=== PATIENT | female | born 1960 | race Caucasian/White ===

== ENCOUNTER 2018-07-20 06:32 | Day surgery (SDC) | END 2018-07-20 17:21 | disposition home or self-care (01) ==

== ENCOUNTER 2019-03-10 03:53 | Inpatient (IN) | payer OTHER ==
[2019-03-10] VITALS (14 sets, daily range): BP systolic 128–162; BP diastolic 80–90; PULSE 52–79; RESP 16–18
[~2019-03-10 03:53] MED LIST: ASPI-817 PO; LISINOPRIL PO
[2019-03-10] MEDS ORDERED: ACETAMINOPHEN 325 MG TAB PO PRN (06:30)
[2019-03-10] MEDS ORDERED: ONDANSETRON 4 MG INJ IV PRN (06:30)
[2019-03-10] MEDS ORDERED: LISINOPRIL 20 MG TAB PO SCH (09:00)
[2019-03-10] MEDS: ASPIRIN 81 MG TAB PO SCH (09:27)
--- NOTE | 2019-03-10 09:50 | CONS ---
Assessment/Plan Assessment/Plan Hospital Course 59 F c HTN, who presents for evaluation of R iveth-visual changes...in the context of reported elevated BP. There is also a report of possible LOC... The clinical picture is most ominously concerning for stroke.. Hypertensive urgency is additionally considered, though a Dx of exclusion.. OSH Head CT was reportedly unremarkable.. P: MRI brain for further characterization asa/lipitor daily, pending the above add UDS Other management and supportive care per primary Will follow clinically Consultation Date/Type/Reason Admit Date/Time March 10, 2019 at 05:38 Type of Consult Neurology Reason for Consultation vision abnl Requesting Provider: ELISHA DAVALOS MD Date/Time of Note DATE: 03/10/19 TIME: 09:43 Hx of Present Illness 59 F c/ Hx of HTN, who presents for evaluation of severe HTN and visual Sx.. She notes strenuously cleaning home 2 days ago..which left her dizzy and tired. Then yesterday, she noticed that her BP was progressively elevated... She also noted black dots in R iveth-vision...which have since transformed into squiggly lines.. She has never had similar visual Sx previously.. She denies headache, chest pain, weakness, numbness, or other additional Sx.. 12 pt ROS ow neg Exam/Review of Systems Exam Vitals Vital Signs Date Temp Pulse Resp B/P (MAP) Pulse Ox O2 O2 Flow FiO2 Time Delivery Rate 03/10/19 98.7 79 18 128/84 96 Room Air 09:34 (99) Exam PE: Gen Appearance: No Apparent Distress HEENT: Normocephalic Cardiovascular: Regular rate Lungs: Clear bilaterally Abdomen: Soft Extremities: Dry NE: The patient was alert and oriented. Language was normal. Fund of knowledge was normal. Pupils were equal and reactive to light. There was no afferent pupillary defect. Visual oneil were normal. Funduscopic examination was limited. Extra-ocular movements were full. Ptosis was absent. There was no nystagmus. Facial sensation was normal. Face was symmetric with normal strength. Hearing was intact. Palate movements were normal. Neck strength was normal. There was normal tongue bulk and speed of movement. Tone was normal. Muscle bulk was normal. I did not see fasciculations. Arms and legs were strong. Vibration sensation was normal. Temperature and pinprick sensation was normal. Rapid alternating movements were normal. There was no dysmetria. There was no intention tremor. Gait was deferred due to bedrest. Arm and leg reflexes were 2+ and symmetric. Vargas's sign was absent. Plantar responses were flexor. Results Result Diagram: 03/10/19 0716 Results 24hrs Laboratory Tests Test 03/10/19 07:16 White Blood Count 10.0 Red Blood Count 4.96 Hemoglobin 14.6 Hematocrit 43.9 Mean Corpuscular Volume 88.5 Mean Corpuscular Hemoglobin 29.4 Mean Corpuscular Hemoglobin Concent 33.3 Red Cell Distribution Width 13.2 Platelet Count 301 Mean Platelet Volume 10.3 Immature Granulocytes % 0.500 H Neutrophils % 49.8 Lymphocytes % 36.6 Monocytes % 9.7 Eosinophils % 2.6 Basophils % 0.8 Nucleated Red Blood Cells % 0.0 Immature Granulocytes # 0.050 H Neutrophils # 5.0 Lymphocytes # 3.7 H Monocytes # 1.0 H Eosinophils # 0.3 Basophils # 0.1 Nucleated Red Blood Cells # 0.0 B-Type Natriuretic Peptide 155 H Triglycerides Level 254 H Cholesterol Level 232 H LDL Cholesterol, Calculated 142 HDL Cholesterol 39 Cholesterol/HDL Ratio 5.9 Medications Medication Current Medications Aspirin (Aspirin) 81 mg DAILY PO Last administered on 03/10/19at 09:27; Admin Dose 81 MG; Start 03/10/19 at 09:00 Lisinopril (Zestril) 20 mg DAILY PO Last administered on 03/10/19at 09:28; Admin Dose 20 MG; Start 03/10/19 at 09:00 Acetaminophen (Tylenol Tab) 650 mg Q6H PRN PO MILD PAIN(1-3)OR ELEVATED TEMP; Start 03/10/19 at 06:30 Ondansetron HCl (Zofran Inj) 4 mg Q6H PRN IV NAUSEA AND/OR VOMITING; Start 03/10/19 at 06:30 Past Medical History reviewed Home Meds Reported Medications Aspirin* (Aspirin* EC) 81 Mg Tablet.dr, 81 MG PO DAILY, TAB 07/20/18 [Lisinopril] No Conflict Check, PO 07/20/18 Medications Current Medications Aspirin (Aspirin) 81 mg DAILY PO Last administered on 03/10/19at 09:27; Admin Dose 81 MG; Start 03/10/19 at 09:00 Lisinopril (Zestril) 20 mg DAILY PO Last administered on 03/10/19at 09:28; Admin Dose 20 MG; Start 03/10/19 at 09:00 Acetaminophen (Tylenol Tab) 650 mg Q6H PRN PO MILD PAIN(1-3)OR ELEVATED TEMP; Start 03/10/19 at 06:30 Ondansetron HCl (Zofran Inj) 4 mg Q6H PRN IV NAUSEA AND/OR VOMITING; Start 03/10/19 at 06:30 Allergies: Coded Allergies: No Known Allergy (Unverified , 07/20/18) Past Surgical History reviewed Family History Significant Family History: hypertension Social History Alcohol Use: none Smoking Status: Never smoker Drug Use: none RAZA CRAIG March 10, 2019 09:50
--- NOTE | 2019-03-10 13:41 | HP ---
Date/Time of Note Date/Time of Note DATE: 03/10/19 TIME: 13:41 Assessment/Plan VTE Prophylaxis Risk score (from [facility]0 risk: 3 SCD applied (from [facility]): No SCD contraindicated: low risk/ambulating Pharmacological prophylaxis: NA/contraindicated Pharm contraindication: low risk/ambulating Lines/Catheters IV Catheter Type (from [facility] Saline Lock Urinary Cath still in place: No Assessment/Plan Hospital Course 1. History of altered level of consciousness 2. History of bradycardia 3. Hypertension emergency 4. Dizziness 5. Dyslipidemia 6. Overweight Assessment/Plan -telemetry service -start Simvastatin 20 mg po daily -GI proph. Protonix -DVT proph. ambulation -ambulate -add HCTZ -Dr. Lofton for cardiology consult aware -Normalization of her blood pressure Result Diagram: 03/10/19 0716 Results 24hrs Laboratory Tests Test 03/10/19 07:16 White Blood Count 10.0 Red Blood Count 4.96 Hemoglobin 14.6 Hematocrit 43.9 Mean Corpuscular Volume 88.5 Mean Corpuscular Hemoglobin 29.4 Mean Corpuscular Hemoglobin Concent 33.3 Red Cell Distribution Width 13.2 Platelet Count 301 Mean Platelet Volume 10.3 Immature Granulocytes % 0.500 H Neutrophils % 49.8 Lymphocytes % 36.6 Monocytes % 9.7 Eosinophils % 2.6 Basophils % 0.8 Nucleated Red Blood Cells % 0.0 Immature Granulocytes # 0.050 H Neutrophils # 5.0 Lymphocytes # 3.7 H Monocytes # 1.0 H Eosinophils # 0.3 Basophils # 0.1 Nucleated Red Blood Cells # 0.0 B-Type Natriuretic Peptide 155 H Triglycerides Level 254 H Cholesterol Level 232 H LDL Cholesterol, Calculated 142 HDL Cholesterol 39 Cholesterol/HDL Ratio 5.9 HPI/ROS Admit Date/Time Admit Date/Time March 10, 2019 at 05:38 Hx of Present Illness This 59 years old Ghanaian female with a history of hypertension was seen in [facility] emergency room with blurry vision, dizziness, altered LOC per daughter and a hypertensive emergency , therefore stroke was suspected. Code stroke was called. Patient underwent CT scan of the head with contrast , that is unremarkable, ultrasound of both carotid arteries that are negative for stenosis, occlusion or any other abnormalities. CT angiogram neck with contrast was performed as well negative. CMP showed glucose 105 creatinine 1.03 GFR 56 troponin is normal, PTT is normal, INR normal in the emergency room. She was given 1 L of normal saline bolus. EKG showed normal sinus rhythm, patient was transferred to [facility] in the hospital today per insurance purposes Pr reported that she normally takes Lisinopril 20 daily but recently she changed her medication to other Setswana medication, TERENCE inhibitor, she report 3 days ago skipping beats ROS Constitutional: no complaints Cardiovascular: chest pain, edema; No no complaints, No lightheadedness, No orthopenea, No palpitations, No paroxysmal nocturnal dyspnea, No other PMH/Family/Social Past Medical History Medical History: hypertension Medications Current Medications Aspirin (Aspirin) 81 mg DAILY PO Last administered on 03/10/19at 09:27; Admin Dose 81 MG; Start 03/10/19 at 09:00 Lisinopril (Zestril) 20 mg DAILY PO Last administered on 03/10/19at 09:28; Admin Dose 20 MG; Start 03/10/19 at 09:00 Acetaminophen (Tylenol Tab) 650 mg Q6H PRN PO MILD PAIN(1-3)OR ELEVATED TEMP; Start 03/10/19 at 06:30 Ondansetron HCl (Zofran Inj) 4 mg Q6H PRN IV NAUSEA AND/OR VOMITING; Start 03/10/19 at 06:30 Coded Allergies: No Known Allergy (Unverified , 07/20/18) Past Surgical History Past Surgical Hx: no surgical history Family History Significant Family History: hypertension Social History Alcohol Use: none Smoking Status: Never smoker Drug Use: none Exam/Review of Systems Vital Signs Vitals Vital Signs Date Temp Pulse Resp B/P (MAP) Pulse Ox O2 O2 Flow FiO2 Time Delivery Rate 03/10/19 98.1 52 16 159/90 98 Room Air 12:20 (113) Exam Constitutional: alert, oriented Respiratory: clear to auscultation Cardiovascular: regular rate and rhythm Genitourinary - Female: CVA tenderness; No nl adnexae, No nl external genitalia, No CMT, No uterus, No other PENNY SCHWARTZ March 10, 2019 13:41
[2019-03-10] MEDS ORDERED: hydrALAzine 20 MG INJ IV PRN (17:00)
[2019-03-10] MEDS: HYDROCHLOROTHIAZIDE 25 MG TAB PO SCH (17:41)
--- NOTE | 2019-03-10 18:46 | RADRPT ---
Echocardiogram Report Patient Name: MAC HARRISONPatient ID: [id number] : 1960 (59y 1m)Study Date: 03/10/2019 8:08:13 AM Gender: FAccession #: [id number] Tech: Timothy Villafana [facility] Location: [facility] Ref.Physician: ELISHA DAVALOS Height(Cm): BSA: Weight(Kg): Quality: AdequateAccount #: Procedures: Echocardiographic Report: Transthoracic echocardiogram with complete 2D, M-Mode, and doppler examination. Indications: Rule out stroke. Measurements: 2D/M Mode Doppler Measurement Value Normal Range Measurement Value Normal Range LVIDd 2D 3.9 [ 3.8 - 5.2 ] cm AV Peak Roderick 1.2 [ 100.0 - 170.0 ] cm/sec LVIDs 2D 2.6 [ 2.2 - 3.5 ] cm AV Peak PG 6.0 [ 2.0 - 9.0 ] mmHg LVPWd 2D 1.0 [ 0.6 - 0.9 ] cm LVOT Peak Roderick 1.1 [ 70.0 - 110.0 ] cm/sec IVSd 2D 1.5 [ 0.6 - 0.9 ] cm LVOT Peak PG 5.0 [ 2.0 - 6.0 ] mmHg AoR Diam 2D 2.7 [ 2.3 - 3.1 ] cm MV E Peak Roderick 0.7 [ 60.0 - 130.0 ] cm/sec EDV 2D 66.3 [ 46.0 - 106.0 ] ml MV A Peak Roderick 0.9 [ 100.0 - 120.0 ] cm/sec ESV 2D 25.3 [ 14.0 - 42.0 ] ml MV E/A 0.8 [ 0.8 - 1.5 ] ratio EF 2D 61.8 [ 54.0 - 74.0 ] percent MV Decel Time 268 [ 104 - 258 ] msec LA Dimen 2D 2.6 [ 2.7 - 3.8 ] cm Lat E` Roderick 0.1 [ 10.0 - 15.0 ] cm/sec Lateral E/E` 10.6 [ 1.0 - 2.0 ] ratio MV E/A 0.8 [ 0.8 - 1.5 ] ratio TR Peak Roderick 2.0 [ 100.0 - 280.0 ] cm/sec TR Peak PG 17.0 mmHg RVSP 20.0 [ 10.0 - 36.0 ] mmHg Findings: Left Ventricle: Normal left ventricular systolic function. Normal left ventricular cavity size. Moderate asymmetric septal hypertrophy. Ejection fraction is visually estimated at 60-65 %. Tissue Doppler/Mitral Doppler indices are consistent with impaired relaxation (Stage I diastolic dysfunction). Right Ventricle: Normal right ventricular size. Normal right ventricular systolic function. Left Atrium: The left atrium is normal in size. Right Atrium: The right atrium is normal in size. Mitral Valve: Mild mitral leaflet calcification. Mild mitral annular calcification. Trace mitral regurgitation. Aortic Valve: No hemodynamically significant aortic stenosis by doppler. Aortic cusps appear mildly calcified. Trace aortic valve regurgitation. Tricuspid Valve: Normal appearance of the tricuspid valve. Estimated peak PA systolic pressure 20 mmHg. There is trace tricuspid regurgitation. Pericardium: Normal pericardium with no significant pericardial effusion. Aorta: Normal aortic root. IVC: Normal size and normal respiratory collapse consistent with normal right atrial pressure. Conclusions: Normal left ventricular systolic function. Normal left ventricular cavity size. Moderate asymmetric septal hypertrophy. Ejection fraction is visually estimated at 60-65 %. Tissue Doppler/Mitral Doppler indices are consistent with impaired relaxation (Stage I diastolic dysfunction). ). Mild mitral leaflet calcification. Mild mitral annular calcification. Trace mitral regurgitation. No hemodynamically significant aortic stenosis by doppler. Aortic cusps appear mildly calcified. Trace aortic valve regurgitation. Normal appearance of the tricuspid valve. Estimated peak PA systolic pressure 20 mmHg. There is trace tricuspid regurgitation. Electronically Signed By: Jose Lofton 2019-03-10 18:45:58 PDT
[2019-03-10] MEDS ORDERED: ATORVASTATIN 10 MG TAB PO SCH (21:00)
--- NOTE | 2019-03-10 23:03 | CONS ---
DATE OF ADMISSION: 03/10/2019 DATE OF CONSULTATION: 03/10/2019 REASON FOR CONSULTATION: Hypertensive urgency/emergency. REQUESTING PHYSICIAN: Karla Davalos MD HISTORY OF PRESENT ILLNESS: Ms. Mcginnis is a 59-year-old female with history of hypertension on ba seline antihypertensives which she had previously gotten from [place] when she visits there and per [place] law had taken a trip to the [place] and left her medications there, therefore, the patient got a new bl ood pressure medication from her physician [place] in the [place] with lisinopril. The patient wa s taking an alternative TERENCE inhibitor, has not carried in the [place] and per discussion with pollo haines, it appears that the patient was taking a combination pill possibly in combination with calcium channel roman, Norvasc. The patient subsequently had taken this for a few weeks and was noticing dizziness and slight confusion and therefore, had taken her blood pressure on and it was very high an d therefore presented to outside hospital, [place] where upon arrival, blood pressure was 197/91, pulse is 70, respiratory rate 16 at 100%. The patient's labs are notable for creatinine of 1, a gluc ose of 105, sodium 139, potassium 3.7, troponin negative. The patient underwent a CT of the head and neck revealing no evidence of dissection, aneurysm or stenosis, and normal CT examination of the bra in, no acute intracranial abnormalities. The patient thereafter transferred to [facility] due to insurance reasons. Since arrival at [facility], the patient's systo lic blood pressure is overall more reasonable, almost recently down to 160s, diastolics in the 80s to 90s, pulses per minute ranged from 60 to 70 and even had some intermittent times in the 50s. The abby tidwell continued to have dizziness while sitting in a chair. The patient denies chest pain, shortness of breath. PAST MEDICAL HISTORY: As above in the HPI. MEDICATIONS CURRENTLY IN THE HOSPITAL: 1. Protonix 40 mg daily. 2. Lipitor 10 mg at bedtime. 3. Hydrochlorothiazide 25 mg daily. 4. Aspirin 81 mg daily. 5. Zestril 20 mg daily. 6. Tylenol p.r.n. 7. Zofran p.r.n. ALLERGIES: NO KNOWN DRUG ALLERGIES. SOCIAL HISTORY: No current tobacco, ETOH or illicit drug use. FAMILY HISTORY: No history of sudden cardiac or early CAD. REVIEW OF SYSTEMS: As above in the HPI. CONSTITUTIONAL: No fevers, chills. PULMONARY: No current shortness of breath. CARDIOVASCULAR: No current chest pain, but hypertension. GASTROINTESTINAL: No vomiting. GENITOURINARY: No hematuria. MUSCULOSKELETAL: Degenerative joint disease. PSYCHIATRIC: No documented psych history. NEUROLOGIC: Dizziness. PHYSICAL EXAMINATION: VITAL SIGNS: Temperature 97.7, blood pressure 160/80, pulse 63, respiratory rate of 16, satting 98%. GENERAL: The patient is alert, awake, in no acute distress. NECK: JVP approximately 8 to 9 cm of water. CHEST: Fair air movement throughout. HEART: Regular rate and rhythm. Normal S1, S2, I/ systolic murmur, nondisplaced PMI. ABDOMEN: Positive bowel sounds, soft. EXTREMITIES: No edema, 1+ pulses bilateral posterior tibial. LABORATORY DATA: Most recently from today, BNP of 155, LDL 144, HDL 39. White blood cell count 10, hemoglobin 14.6, platelet count of 301. Tox screen negative. IMAGING STUDIES: As above in the HPI. No further imaging for my review at this time. ELECTROCARDIOGRAM: No electrocardiograms for my review at this time. IMPRESSION: 1. Hypertensive urgency/emergency, slowly improving on oral antihypertensives. 2. Dizziness, rule out cerebrovascular accident. 3. Bradycardia, intermittent. 4. Mildly increased BNP. Assess the patient's current volume status. 5. Dyslipidemia with low HDL. RECOMMENDATIONS: 1. At this time, we would maintain patient on telemetry monitoring to follow rhythm and rate control closely. 2. We would check orthostatics to ensure that orthostasis is not contributing to the patient's dizzi ness at this time. 3. Ongoing neurologic evaluation of dizziness with a pending head CT, but continue the patient's asp irin for prophylaxis against cardiovascular events and cerebrovascular events. 4. The patient has been newly started on hydrochlorothiazide. We will up titrate the patient's kiara nopril. Follow up with us closely. 5. Continue the patient's statin at this time. 6. We will check a 2D echo for this patient's ejection fraction, wall motion or rule out any major a bnormalities and we will complete a rule out for myocardial infarction so as the patient would not pr ovoke any acute coronary syndromes in the setting of hypertensive urgency/emergency and we will evelin nue to check serial EKGs, therefore check an EKG, now is baseline, I will repeat EKG in the morning, EKG for any complaints of chest pain or changes in rhythm. Thank you for allowing me to take part in the care of this patient. I will continue to follow very c losely with you with further recommendations to be made as the patient progresses through her [facility] course. Dictated By: JEFFERY MORRISSEY/BRIDGET Conf#: [id number] DID#: [id number] CC: KARLA DAVALOS;*EndCC*
[2019-03-11] VITALS (8 sets, daily range): BP systolic 100–143; BP diastolic 54–80; PULSE 57–70; RESP 16–18
[2019-03-11] MEDS ORDERED: PANTOPRAZOLE (EC) 40 MG TAB PO SCH (06:00)
[2019-03-11] MEDS: HYDROCHLOROTHIAZIDE 25 MG TAB PO SCH (08:58)
[2019-03-11] MEDS: ASPIRIN 81 MG TAB PO SCH (08:58)
[2019-03-11] MEDS ORDERED: LISINOPRIL 20 MG TAB PO SCH (09:00)
--- NOTE | 2019-03-11 12:24 | DS ---
Date/Time of Note Date/Time of Note DATE: 03/11/19 TIME: 12:24 Discharge Summary Admission/Discharge Info Admit Date/Time March 10, 2019 at 05:38 Discharge Date/Time Discharge Diagnosis hypertensive emergency Patient Condition: Stable Consults Dr Lofton, cardiology, dr Charles, neurology Procedures echocardiogram Hospital Course This 59 years old Danish female with a history of hypertension was seen in [facility] emergency room with blurry vision, dizziness, altered LOC per daughter and a hypertensive emergency 197/91, therefore stroke was s uspected. Code stroke was called. Patient underwent CT scan of the head with contrast , that is unremarkable, ultrasound of both carotid arteries that are negative for stenosis, occlusion or any other abnormalities. CT angiogram neck with contrast was performed as well negative. CMP showed glucose 105 creatinine 1.03 GFR 56 troponin is normal, PTT is normal, INR normal in the emergency room. She was given 1 L of normal saline bolus. EKG showed normal sinus rhythm, patient was transferred to [facility] in the hospital today per insurance purposes Pr reported that she normally takes Lisinopril 20 daily but recently she changed her medication to other Martiniquais medication, TERENCE inhibitor, she report 3 days ago skipping beats Dx:1. History of altered level of consciousness 2. History of bradycardia 3. Hypertension emergency 4. Dizziness 5. Dyslipidemia 6. Overweight During hospitalization pt was on telemetry monitoring. Dr Lofton was called as cardiology consult. He followed rhythm and rate control closely. He checked orthostatics to ensure that orthostasis is not contributing to the patient's dizziness at this time.Pt was started on hydrochlorothiazide. He titrated the patient's lisinopril up. He checked the patient's lipids /2D echo for this pa tient's ejection fraction. Pt has hyperlipidemia and was started on low dose Lipitor. 2 D echocardiogram was 65%, stage I diastolic dysfunction. During hospitalization pt was seen by neurology specialist, dr CHARLES, no ALOC events was registered. CT scan was negative, Pt reported clinical improvement and was discharged with supplements of vit. D and adjusted Lisinopril. Home Meds Active Scripts Lisinopril* (Lisinopril*) 20 Mg Tablet, 30 MG PO DAILY for 30 Days, TAB Prov:PENNY SCHWARTZ 03/11/19 Hydrochlorothiazide* (Hydrochlorothiazide*) 25 Mg Tab, 25 MG PO DAILY for 30 Days, TAB Prov:ZENMONAEVA,PENNY 03/11/19 Ergocalciferol (Vitamin D2) (VITAMIN D2) 50,000 Unit Capsule, 33592 UNIT PO Q7D for 90 Days, CAP Prov:MEZENTSEVA,PENNY 03/11/19 Atorvastatin (Atorvastatin) 10 Mg Tablet, 10 MG PO HS for 30 Days, TAB Prov:ZENTSEVA,PENNY 03/11/19 Reported Medications Aspirin* (Aspirin* EC) 81 Mg Tablet.dr, 81 MG PO DAILY, TAB 07/20/18 Discontinued Reported Medications [Lisinopril] No Conflict Check, PO 07/20/18 Follow-up Plan PCP 1 week Primary Care Provider Not On Staff Doctor Time spent on discharge: < 30 minutes Pending Labs Laboratory Tests Test 03/10/19 13:00 03/10/19 18:11 03/11/19 00:34 03/11/19 06:10 Urine Opiates Negative (NEGAT Screen TSERING) Urine Negative (NEGAT Barbiturates TSERING) Urine Negative (NEGAT Amphetamines TSERING) Screen Urine Negative (NEGAT Benzodiazepines TSERING) Screen Urine Cocaine Negative (NEGAT Screen TSERING) Urine Negative (NEGAT Cannabinoids TSERING) Troponin I < 0.012 < 0.012 < 0.012 ng/ml (0.000-0 ng/ml (0.000-0 ng/ml (0.000-0 .120) .120) .120) White Blood 7.7 Count 10^3/ul (4.8-1 0.8) Red Blood 4.79 Count 10^6/ul (4.20- 5.40) Hemoglobin 14.2 g/dl (12.0-16. 0) Hematocrit 43.1 % (37.0-47.0) Mean 90.0 Corpuscular fl (82.0-101.0 Volume ) Mean 29.6 Corpuscular pg (29.0-33.0) Hemoglobin Mean 32.9 Corpuscular g/dl (32.0-37. Hemoglobin Conc 0) ent Red Cell 12.8 Distribution % (11.5-14.5) Width Platelet Count 276 10^3/UL (140-4 15) Mean Platelet 10.3 Volume fl (7.4-10.4) Immature 0.400 Granulocytes % % (0.001-0.429 ) Neutrophils % 46.4 % (39.0-77.0) Lymphocytes % 39.0 % (15.0-51.0) Monocytes % 9.9 % (0.0-11.0) Eosinophils % 3.7 % (0.0-7.0) Basophils % 0.6 % (0.0-2.0) Nucleated Red 0.0 Blood Cells % /100WBC (0.0-0 .0) Immature 0.030 Granulocytes # 10^3/ul (0.0-0 .031) Neutrophils # 3.6 10^3/ul (1.6-7 .5) Lymphocytes # 3.0 10^3/ul (0.8-2 .9) Monocytes # 0.8 10^3/ul (0.3-0 .9) Eosinophils # 0.3 10^3/ul (0.0-0 .5) Basophils # 0.1 10^3/ul (0.0-0 .1) Nucleated Red 0.0 Blood Cells # 10^3/ul (0.0-0 .0) Hemoglobin A1c 5.5 % (0-5.9) Test 03/11/19 06:11 Sodium Level 141 mmol/L (135-144 ) Potassium 4.7 Level mmol/L (3.5-5.1 ) Chloride Level 105 mmol/L (97-110) Carbon Dioxide 30 Level mmol/L (21-31) Anion Gap 6 (5-13) Blood Urea 15 mg/dl (7-20) Nitrogen Creatinine 0.80 mg/dl (0.44-1.0 0) Est Glomerular > 60 Filtrat mL/min (>60) Rate mL/min Glucose Level 95 mg/dl (70-220) Calcium Level 9.4 mg/dl (8.4-10.2 ) Vitamin D 25.8 1,25-Dihydroxy ng/ml (30-100) PENNY SCHWARTZ March 11, 2019 12:24
--- NOTE | 2019-03-11 12:53 | PDOCDIS ---
Discharge Instructions DIAGNOSIS Discharge Diagnosis hypertensive emergency CONDITION [id number] Patient Condition: [id number] Stable HOME CARE INSTRUCTIONS: [id number] Diet Instructions: [id number] Low Fat /Cholesterol ACTIVITY: [id number] Activity Restrictions: [id number] Slowly Increase Activity Rest between Activity Avoid heavy lifting FOLLOW UP/APPOINTMENTS Follow-up Plan PCP 1 week -ophthalmology yearly PENNY SCHWARTZ March 11, 2019 12:53
[2019-03-11] MEDS ORDERED: HYDR25TA6 PO (12:57)
[2019-03-11] MEDS ORDERED: ATOR10TA65 PO (12:57)
[2019-03-11] MEDS ORDERED: ERGO500013 PO (12:57)
[2019-03-11] MEDS ORDERED: LISI-471 PO (12:57)
[2019-03-11] MEDS ORDERED: ERGOCALCIFEROL 50,000 UNIT CAP PO SCH (13:00)
--- NOTE | 2019-03-11 13:44 | CONS ---
Assessment/Plan Assessment/Plan Hospital Course 59 F c HTN, who presents for evaluation of R iveth-visual changes...in the context of reported elevated BP. There is also a report of possible LOC... The clinical picture suggests hypertensive urgency.. MRI brain is reassuringly negative for acute intracranial pathology.. UDS neg P: Continued management and supportive care per primary Will sign off for now; please call w/ ?s Consultation Date/Type/Reason Admit Date/Time March 10, 2019 at 05:38 Type of Consult Neurology Reason for Consultation vision abnl Requesting Provider: ELISHA DAVALOS MD Date/Time of Note DATE: 03/11/19 TIME: 13:43 24 HR Interval Summary Free Text/Dictation Continues acute care Exam Vital Signs Vitals Vital Signs Date Temp Pulse Resp B/P (MAP) Pulse Ox O2 O2 Flow FiO2 Time Delivery Rate 03/11/19 70 12:01 03/11/19 97.5 16 143/72 98 Room Air 11:27 (95) Intake and Output 03/10/19 03/10/19 03/11/19 1515:00 23:00 07:00 IntakeIntake Total 1200 ml 800 ml BalanceBalance 1200 ml 800 ml Exam PE: Gen Appearance: No Apparent Distress HEENT: Normocephalic Cardiovascular: Regular rate Lungs: Clear bilaterally Abdomen: Soft Extremities: Dry NE: The patient was alert and oriented. Language was normal. Fund of knowledge was normal. Pupils were equal and reactive to light. There was no afferent pupillary defect. Visual oneil were normal. Funduscopic examination was limited. Extra-ocular movements were full. Ptosis was absent. There was no nystagmus. Facial sensation was normal. Face was symmetric with normal strength. Hearing was intact. Palate movements were normal. Neck strength was normal. There was normal tongue bulk and speed of movement. Tone was normal. Muscle bulk was normal. I did not see fasciculations. Arms and legs were strong. Vibration sensation was normal. Temperature and pinprick sensation was normal. Rapid alternating movements were normal. There was no dysmetria. There was no intention tremor. Gait was deferred due to bedrest. Arm and leg reflexes were 2+ and symmetric. Vargas's sign was absent. Plantar responses were flexor. RAZA CRAIG March 11, 2019 13:44
--- NOTE | 2019-03-12 09:26 | RADRPT ---
Vent Rate: 62 bpm RR Interval: 968 msec [place] Interval: 187 msec QRS Duration: 95 msec QT Interval: 421 msec QTC Interval: 428 msec P-R-T [place]: 68 - 40 - 63 degrees Sinus rhythm...normal P axis, V-rate 50- 99 Electronically Signed By: Thor Sanchez
== END 2019-03-11 14:25 | disposition home or self-care (01) | DRG 305 ==
LOC: TEL 05:38
PROVIDERS: ADMIT Internal Medicine; ATTEND Internal Medicine
DX: I16.0 Hypertensive urgency (principal); R42 Dizziness and giddiness; E78.5 Hyperlipidemia, unspecified; E66.3 Overweight; R00.1 Bradycardia, unspecified
CPT/HCPCS: 70450; 70551; 80048; 80061; 80307; 82652; 83036; 83880; 84443; 84484; 85025; 93005; 93306; 93880